=== PATIENT | female | born 1985 | race Hispanic/Latino ===

== ENCOUNTER 2023-01-30 08:05 | Emergency (ER) | payer BC ==
[2023-01-30 09:14] LABS: Bilirubin Neg (Negative); Blood, Urine 10 (Negative); Glucose, Urine (Dipstick) Normal (Negative); Ketone, Urine Negative (Negative); Leukocyte 100 (Negative); Nitrite Negative (Negative); Protein, Urine (Dipstick) Negative (Neg-Trace); Specific Gravity, Urine 1.025 (1.005-1.030); Urobilinogen Normal mg/dL (Less than 2)
[2023-01-30] MEDS ORDERED: cefTRIAXone (ROCEPHIN) 500 MG VIAL ONE (09:16)
[2023-01-30] MEDS ORDERED: Lidocaine 1% (PF) 30 ML VIAL ONE (09:16)
[2023-01-30 09:17] LABS: Pregnancy Test - Urine (BHCG) Negative (Negative); Pregu Control Background? CLEAR/WHITE (CLR/WHITE); Pregu Control Bar Appear? YES (CONTROL BAR); Specific Gravity 1.025 (1.002-1.036)
[2023-01-30 09:23] LABS: Clarity Hazy (Clear)
[2023-01-30 09:24] LABS: Bacteria/HPF Rare-Few HPF (None Seen); CAUTI Indications for Culture Dysuria,urgency,freq; Mucous/LPF 1+ LPF (<2+); RBC/HPF 0-3 HPF (0-3); Urine Culture Reflex No No; WBC/HPF 0-3 HPF (0-3)
[2023-01-30] MEDS ORDERED: Doxycycline 100 MG CAP PO SCH (09:30)
[2023-01-30 15:23] LABS: Chlam.trachomatis by PCR,Urine Not Detected (NotDetected); GC N.gonorrhoeae PCR,UrineVOID Not Detected (NotDetected)
== END 2023-01-30 12:00 | disposition home or self-care (01) ==
LOC: CSHERS 08:05
DX: N89.8 Other specified noninflammatory disorders of vagina (principal); M99.81 Other biomechanical lesions of cervical region; R35.0 Frequency of micturition
CPT/HCPCS: 81001; 81025; 87086; 87480; 87491; 87510; 87591; 87660; 96372; 99283; J0696; J2001